=== PATIENT | female | born 1985 | race Caucasian/White ===

== ENCOUNTER 2023-03-25 09:34 | Emergency (ER) | payer OTHER, SELFPAY ==
--- NOTE | ~2023-03-25 | CT_ITS ---
EXAMINATION: CT FACIAL BONES WITH CONTRAST CLINICAL INFORMATION: Evaluation of possible forehead abscess. COMPARISON: None available. TECHNIQUE: CT of the face was performed following the intravenous administration of 85 mL Omnipaque 350. Multiplanar reformats were rendered and reviewed. This CT examination was performed using dose optimization techniques as appropriate, variously including the following: *Automated exposure control *Adjustment of mA and/or kV according to patient size (this includes techniques or standardized protocols for targeted exams where dose is matched to indication/reason for exam; i.e. extremities or head) *Use of iterative reconstruction technique DLP: 298 mGy-cm FINDINGS: There is soft tissue thickening and amorphous enhancement within the frontal scalp, just right of midline additional mild inflammation is seen within the bilateral right greater than left periorbital and preseptal tissues. There is no orbital inflammation. No drainable collection is seen. There is no evidence of periosteal reaction or erosion involving the outer table of the frontal bone. Paranasal sinuses are essentially clear. Numerous large dental caries are seen. There is periapical disease within the left maxillary dentition. The imaged intracranial contents are unremarkable. The oral cavity, oropharynx, and imaged portions of the larynx are unremarkable. Nonenlarged cervical chain lymph nodes are seen. The salivary glands are unremarkable. The major neck vessels are normally opacified. CT/CT facial bones w IV con IMPRESSION: Soft tissue thickening and amorphous enhancement within the frontal scalp, just right of midline compatible with phlegmon. Additional mild inflammation is seen within the bilateral periorbital and preseptal tissues. No drainable collection. No evidence of orbital inflammation. Numerous dental caries. Periapical disease seen within the left maxillary dentition.
[2023-03-25 09:51] VITALS: BP 104/33; PULSE 80; RESP 18; TEMP 36.9; O2SAT 98; BMI 30.1
--- NOTE | 2023-03-25 10:21 | ED_ITS ---
HPI - General Adult General Chief complaint: General Medical Stated complaint: Swollen face/infected wound Time Seen by Provider: 03/25/23 10:21 Source: patient Mode of arrival: ambulatory Limitations: no limitations History of Present Illness HPI narrative: Patient is a 37 year old assigned female at with no reported medical history presenting to the emergency department today with bilateral eye swelling and a forehead abscess. Patient states that 4 days ago she noticed a large pimple on her forehead and picked it. Patient states that after picking it, it grew bigger and this morning she woke up with bilateral eyelid edema. Patient denies any dizziness, lightheadedness, abdominal pain, nausea, vomiting, fever, chills, blurry vision, double vision, loss of vision, chest pain, difficulty breathing, shortness of breath, back pain, night sweats, pain with urination, increased urinary frequency, increased urinary urgency, blood in her urine or stool, syncope or a near syncopal episode, recent trauma or falls, bowel incontinence, bladder incontinence, bowel retention, bladder retention, or any other complaints at this time. Onset (ago): day(s) (4) Location: head, face and eyes Severity: mild Relieving factors: none Exacerbating factors: none Associated symptoms: denies other symptoms Treatments prior to arrival: none Related Data Previous Rx's Medication Instructions Recorded amoxicillin 875 mg-potassium 1 tab PO BID 10 days #20 tabs 03/25/23 clavulanate 125 mg tablet Allergies Allergy/AdvReac Type Severity Reaction Status Date / Time No Known Allergies Allergy Verified 03/25/23 09:50 Review of Systems 2 Constitutional: Constitutional: Reports no additional constitutional complaints, Denies chills, Denies fever(s) and Denies night sweats Eyes: Eyes: Reports no additional eye complaints, Denies blurry vision, Denies change in vision, Denies diplopia, Denies eye discharge, Denies loss of vision and Denies eye pain Comments: bilateral periorbital swelling ENT: Denies dizziness Comments: forehead abscess Cardiovascular: Cardiovascular: Reports no additional cardiovascular complaints, Denies chest pain, Denies lightheadedness, Denies Loss of Consciousness and Denies dyspnea Respiratory: Respiratory: Reports no additional respiratory complaints and Denies dyspnea Gastrointestinal: Gastrointestinal: Reports no additional gastrointestinal complaints, Denies abdominal pain, Denies melena, Denies hematochezia, Denies change in bowel habits and Denies change in stool character Genitourinary: Genitourinary: Denies hematuria, Denies urinary frequency, Denies dysuria, Denies urinary incontinence, Denies urinary hesitancy and Denies urinary urgency Musculoskeletal: Musculoskeletal: Reports no additional musculoskeletal complaints, Denies numbness and Denies tingling Neurologic: Denies dizziness, Denies loss of vision, Denies numbness and Denies tingling Psychiatric: Psychiatric: Reports no additional psychiatric complaints Endocrine: Endocrine: Reports no additional endocrine complaints Hematologic/Lymphatic: Hematologic/Lymphatic: Reports no additional hematologic/lymphatic complaints Allergic/Immunologic: Allergic/Immunologic: Reports no additional allergic/immunologic complaints PMFSH Past Medical History Attestation statement: The following information was validated with the patient. Source: old records reviewed and nursing notes reviewed Social History Social History Smoked in Last 30 Days: Yes Use of substances other than those prescribed or required for medical reasons: No Advance Directives: No Advance Directives Information Provided: No Physical Exam ED Vital Signs: Vital Signs - 24 hr 03/25/23 09:51 03/25/23 10:32 03/25/23 13:49 Temperature 98.5 F 98 F 98.4 F Pulse Rate 80 72 71 Respiratory Rate 18 18 20 Blood Pressure 104/33 L 103/40 L 99/46 L Pulse Oximetry 98 98 97 Oxygen Delivery Method Room Air Room Air Room Air BMI result Body Mass Index 30.1 Const General: cooperative, no acute distress, alert and awake Nutritional Appearance: well nourished Orientation/consciousness: patient oriented x3 Limitations: no limitations [facility] Head: Yes atraumatic Head images: 2 1. wound with surrounding erythema and minimal swelling Ears: hearing grossly normal bilaterally and external ears normal General nose exam: Normal external nose present, no nasal discharge noted and no epistaxis Face and sinus: No abrasion and No laceration Mouth: Normal oral and palatal mucosa present, no drooling and no muffled voice Eyes Periorbital: periorbital findings abnormal bilateral periorbital swelling Conjunctivae: conjunctivae normal Pupils: Equal, round and reactive pupils present EOM: EOMs intact bilaterally Neck Neck: Yes normal visual inspection, Yes full ROM and Yes no lymphadenopathy Chest Chest palpation & inspection: normal inspection of the chest Resp Effort & Inspection: normal respiratory effort and able to speak in complete sentences GI Inspection: Yes normal to inspection Neuro General: patient oriented x3 and moves all extremities Cranial nerves: Yes Equal, round and reactive pupils present Cognition (Neuro): normal cognition Motor exam (neuro): 5/5 motor strength present throughout Sensory Exam: Normal double simultaneous stimulation for sensation Coordination: [id number] test normal Extrem General: Yes normal to inspection, Yes full ROM and Yes capillary refill normal Psych Appearance: grossly normal Mental Status: mental status grossly normal Affect: normal affect Attitude: cooperative Thought process: Normal thought process present Thought content: Normal thought content present Insight: Good insight present (Psych) Medications Administered Discontinued Medications Generic Name Dose Route Start Last Admin Trade Name Freq PRN Reason Stop Dose Admin Piperacillin Sod/Tazobactam 50 mls @ 100 mls/hr 03/25/23 10:29 03/25/23 12:02 Sod 3.375 gm/ Sodium Chloride IV 03/25/23 10:58 Infused ONCE ONE Infusion Iohexol 85 ml 03/25/23 12:30 03/25/23 12:30 Iohexol 350 Mg/Ml 100 Ml Infus..Btl IV 03/25/23 12:31 85 ml ONCE ONE Administration Ketorolac Tromethamine 15 mg 03/25/23 12:12 03/25/23 12:15 Ketorolac Tromethamine 15 Mg/Ml Vial IVPUSH 03/25/23 12:13 15 mg ONCE ONE Administration Medical Decision Making Medical Decision Making [facility] Narrative: Patient is a 37 year old assigned female at with no reported medical history presenting to the emergency department today with a forehead wound. Patient's physical exam was as noted in the physical exam portion of this note. Patient's bilateral eye swelling is most consistent with dependent edema secondary to the forehead abscess that has already ruptured. Patient's blood work showed an elevated ESR of 53 and an elevated CRP of 10.56 but were otherwise unremarkable. Patient's CT face with IV contrast showed minimal swelling of the forehead as well as multiple dental caries but no drainable abscess. I explained my physical exam findings as well as all test results to the patient. I answered all questions asked by the patient. Patient was given IV antibiotics. I discussed this case with my attending physician Dr. Mesa who agreed with my plan of discharging the patient and having her continue on oral ABX. I stressed the importance of the patient taking her medication as prescribed. I stressed the importance of the patient following up with her primary care provider. I stressed the importance of the patient returning to the emergency department immediately if her symptoms were to worsen or if she were to develop any dizziness, shortness of breath, difficulty breathing, chest pain, blurry vision, loss of vision, nausea, vomiting, abdominal pain, fever, chills, back pain, or any other complaints. Patient verbalized agreement and understanding with this treatment plan and discharge. Differential Diagnosis Differential Diagnoses: The differential diagnosis associated with the presentation includes Abscess Ruptured abscess Cellulitis Bilateral eye swelling Admission/Observation Consideration of admission/observation: Escalation of care including admission/observation considered Patient would have been admitted to the hospital had her work up had any findings where hospital admission was appropriate and her clinical presentation warranted hospital admission. Lab Data [facility] Lab Attestation statement: I reviewed the patient's lab results. My interpretation of these results are in the [facility] Rationale portion of this note. 03/25/23 11:06 03/25/23 11:23 Labs: Lab Results 03/25/23 03/25/23 03/25/23 Range/Units 11:06 11:13 11:23 WBC 7.9 (4.8-10.8) X10*3/uL RBC 4.18 L (4.20-5.50) X10*6/uL Hgb 11.9 L (12.0-16.0) g/dl Hct 35.2 L (37.0-47.0) % MCV 84.2 (80.0-98.0) fL MCH 28.5 (27.0-33.0) pg MCHC 33.8 (31.0-35.0) g/dl RDW 12.4 (11.0-16.0) % Plt Count 167 (160-400) X10*3/uL MPV 9.9 (9.4-12.3) fL Immature Gran % (Auto) 0.3 (0.0-0.4) % Neut % (Auto) 78.4 H (45-73) % Lymph % (Auto) 11.9 L (20-40) % Carroll % (Auto) 8.7 (2-11) % Eos % (Auto) 0.6 (0-4) % Baso % (Auto) 0.1 (0-2) % Lymph # (Auto) 0.9 L (1.2-4.9) X10*3/uL Carroll # (Auto) 0.7 (0.1-1.2) X10*3/uL Eos # (Auto) 0.1 (0.0-0.4) X10*3/uL Baso # (Auto) 0.0 (0.0-0.2) X10*3/uL Abs Immat Gran (auto) 0.02 (0.00-0.03) X10*3/uL Absolute Neuts (auto) 6.2 (2.0-8.3) x10*3/uL Absolute Nucleated RBC 0.000 (0.0-0.012) X10*3/uL Nucleated RBC % (auto) 0.0 (0.0-0.2) /100WBC ESR 53 H (0-20) MM/HR Sodium 137 (135-145) mmol/L Potassium 4.0 (3.3-5.1) mmol/L Chloride 105 (96-108) mmol/L Carbon Dioxide 21 L (22-29) mmol/L Anion Gap 15 (12-20) BUN 15 (9-16) mg/dL Creatinine 0.85 (0.5-1.4) mg/dL Estim Creat Clear Calc 89.1 Estimated GFR > 60 Random Glucose 103 (60-115) mg/dL Lactic Acid 0.6 (0.5-2.0) mmol/L Calcium 9.1 (8.4-10.2) mg/dL Magnesium 1.9 (1.6-2.6) mg/dL Total Bilirubin 0.7 (0.0-1.0) mg/dL AST 16 (5-31) U/L ALT 26 (0-31) U/L Alkaline Phosphatase 44 (39-117) U/L C-Reactive Protein 10.56 H (< or = 0.50) mg/dL Total Protein 7.0 (6.5-8.0) g/dL Albumin 3.8 (3.5-5.0) g/dL Beta HCG, Quant < 2 mIU/mL Independent Interpretation I performed an independent interpretation of an: CT Scan Interpretation: My interpretation is in agreement with the radiologist's impression of this imaging study. - EXAMINATION: CT FACIAL BONES WITH CONTRAST CLINICAL INFORMATION: Evaluation of possible forehead abscess. COMPARISON: None available. TECHNIQUE: CT of the face was performed following the intravenous administration of 85 mL Omnipaque 350. Multiplanar reformats were rendered and reviewed. This CT examination was performed using dose optimization techniques as appropriate, variously including the following: *Automated exposure control *Adjustment of mA and/or kV according to patient size (this includes techniques or standardized protocols for targeted exams where dose is matched to indication/reason for exam; i.e. extremities or head) *Use of iterative reconstruction technique DLP: 298 mGy-cm FINDINGS: There is soft tissue thickening and amorphous enhancement within the frontal scalp, just right of midline additional mild inflammation is seen within the bilateral right greater than left periorbital and preseptal tissues. There is no orbital inflammation. No drainable collection is seen. There is no evidence of periosteal reaction or erosion involving the outer table of the frontal bone. Paranasal sinuses are essentially clear. Numerous large dental caries are seen. There is periapical disease within the left maxillary dentition. The imaged intracranial contents are unremarkable. The oral cavity, oropharynx, and imaged portions of the larynx are unremarkable. Nonenlarged cervical chain lymph nodes are seen. The salivary glands are unremarkable. The major neck vessels are normally opacified. CT/CT facial bones w IV con IMPRESSION: Soft tissue thickening and amorphous enhancement within the frontal scalp, just right of midline compatible with phlegmon. Additional mild inflammation is seen within the bilateral periorbital and preseptal tissues. No drainable collection. No evidence of orbital inflammation. Numerous dental caries. Periapical disease seen within the left maxillary dentition. Dictated By: JOSEPH NICHOLSON MD Signed By: Electronically signed by JOSEPH NICHOLSON MD 03/25/23 4703 Radiology Impression Discussion of test interpretation with radiology: I have reviewed the radiologist's reading. Prescription Management I considered prescription management with: Antibiotic (patient prescribed an antibiotic) Critical Care Time Critical Care Time Critical Care Time: Yes Total Critical Care Time: 35 Attestation: I spent 35 minutes of Critical Care Time with this patient. This does not include time spent on separately reported billable procedures. Discharge Plan Discharge Clinical Impression: Abscess Patient Disposition: Home, Self-Care Instructions: Abscess (ED) Additional Instructions: Follow up with your primary care provider. Return to the emergency department immediately if your symptoms worsen or if you develop any dizziness, shortness of breath, difficulty breathing, chest pain, blurry vision, loss of vision, nausea, vomiting, abdominal pain, fever, chills, back pain, or any other complaints. Prescriptions: New amoxicillin-pot clavulanate 875-125 mg tablet 1 tab PO BID 10 Days Qty: 20 0RF Referrals: Batool Cadet NP [Primary Care Provider] - Interventions: ED Discharge Assessment Last Done: 03/25/23 14:06 Discharge Date/Time: 03/25/23 14:07 Print Language: Maori
[2023-03-25 10:32] VITALS: BP 103/40; PULSE 72; RESP 18; TEMP 36.6; O2SAT 98
--- NOTE | 2023-03-25 10:33 | PC.NURSE ---
pt alert and oriented, breathing even and unlabored. face noted to be edematous, swelling around bilat eyes and forehead. pt has area of swelling and redness around wound-like area, pt reports pus was coming out of it. pt reports face swelling occured overnight. pt denies any SOB, CP, difficulty swallowing or speaking, fevers, cough, N/V/D. pt does report some difficulty seeing out of right eye due to swelling. provider at bedside.
[2023-03-25 11:10] LABS: MANUAL DIFF FLAG NO
[2023-03-25 11:15] LABS: Basophils Percent Auto 0.1 % (0-2); Eosinophils Absolute Auto 0.1 X10*3/uL (0.0-0.4); Eosinophils Percent Auto 0.6 % (0-4); Hematocrit 35.2 % (37.0-47.0); Hemoglobin 11.9 g/dl (12.0-16.0); Imm Gran Abs Auto 0.02 X10*3/uL (0.00-0.03); Imm Gran Pct Auto 0.3 % (0.0-0.4); Lymphocytes Absolute Auto 0.9 X10*3/uL (1.2-4.9); Lymphocytes Percent Auto 11.9 % (20-40); Mean Corpuscular HGB Conc 33.8 g/dl (31.0-35.0); Mean Corpuscular Hemoglobin 28.5 pg (27.0-33.0); Mean Corpuscular Volume 84.2 fL (80.0-98.0); Mean Platelet Volume 9.9 fL (9.4-12.3); Monocytes Absolute Auto 0.7 X10*3/uL (0.1-1.2); Monocytes Percent Auto 8.7 % (2-11); Neutrophils Absolute Auto 6.2 x10*3/uL (2.0-8.3); Neutrophils Percent Auto 78.4 % (45-73); Platelet Count 167 X10*3/uL (160-400); Red Blood Count 4.18 X10*6/uL (4.20-5.50); Red Cell Distribution Width 12.4 % (11.0-16.0); White Blood Count 7.9 X10*3/uL (4.8-10.8)
[2023-03-25] MEDS: Piperacillin Sodium/Tazobactam 3.375 GM in 0.9 % Sodium Chloride 50 ML IV (11:24)
[2023-03-25 11:30] LABS: Lactic Acid 0.6 mmol/L (0.5-2.0)
[2023-03-25 11:48] LABS: Alanine Aminotransferase 26 U/L (0-31); Albumin Level 3.8 g/dL (3.5-5.0); Alkaline Phosphatase 44 U/L (39-117); Anion Gap 15 (12-20); Aspartate Amino Transferase 16 U/L (5-31); Bilirubin Total 0.7 mg/dL (0.0-1.0); Blood Urea Nitrogen 15 mg/dL (9-16); C Reactive Protein 10.56 mg/dL (< or = 0.50); Calcium 9.1 mg/dL (8.4-10.2); Carbon Dioxide 21 mmol/L (22-29); Chloride 105 mmol/L (96-108); Creatinine Clr Calc Pharmacy 89.1; Estimated Glomerular Filt Rate > 60; Glucose Random 103 mg/dL (60-115); Magnesium 1.9 mg/dL (1.6-2.6); Sodium 137 mmol/L (135-145)
[2023-03-25 11:51] LABS: Erythrocyte Sedimentation Rate 53 MM/HR (0-20)
[2023-03-25 11:57] LABS: HCG Quantitative < 2 mIU/mL
[2023-03-25] MEDS: Ketorolac Tromethamine 15 MG/ML VIAL IVPUSH (12:15)
--- NOTE | 2023-03-25 12:18 | PC.NURSE ---
pt requested pain med for CT since she has had headache in the past from contrast, provider aware and pt medicated per APR. pt taken to CT scan
[2023-03-25] MEDS: iohexoL 350 MG/ML 100 ML INFUS..BTL 85 ML IV (12:30)
[2023-03-25 13:49] VITALS: BP 99/46; PULSE 71; RESP 20; TEMP 36.9; O2SAT 97
== END 2023-03-25 14:07 | disposition home or self-care (01) ==
PROVIDERS: Physician Assistant Medical; Emergency Provider Emergency Medicine Emergency Medical Services; PCP Nurse Practitioner Family
DX: L02.01 Cutaneous abscess of face (principal); R22.0 Localized swelling, mass and lump, head; R51.9 Headache, unspecified; Z79.899 Other long term (current) drug therapy
CPT/HCPCS: 36415; 70487; 80053; 83605; 83735; 84702; 85025; 85652; 86140; 87040; 96365; 96375; 99284; J1885; J2543; Q9967